=== PATIENT | female | born 1935 | race Asian ===

== ENCOUNTER 2017-01-23 13:12 | Inpatient (IN) | payer MEDICARE ==
[~2017-01-23] VITALS: Ht 157.5 cm; Wt 50.7 kg
[2017-01-23] MEDS ORDERED: SODIUM CHLORIDE 0.9% 1,000 ML IV ONE (13:31)
[2017-01-23] MEDS ORDERED: ACETAMINOPHEN 650 MG SUPP ONE (13:39)
[2017-01-23] MEDS: PLEASE ENTER ALLERGIES MC SCH ×4 (13:58→14:10)
[2017-01-23] MEDS ORDERED: ACETAMINOPHEN 650 MG SUPP PR ONE (14:00)
[2017-01-23] MEDS ORDERED: SODIUM CHLORIDE FLUSH 10ML SYR IVF ONE (14:00)
[2017-01-23] MEDS ORDERED: SODIUM CHLORIDE 0.9% 1,000ML IVBOLUS ONE ×2 (14:00→16:00)
[2017-01-23 14:09] LABS: ABG COLLECTION SITE RIGHT BRACHIAL
[2017-01-23] MEDS ORDERED: CEFTRIAXONE PMX 1GM/50ML 50 ML ONE (14:11)
[2017-01-23] MEDS ORDERED: ENAL25PO PO (14:17)
[2017-01-23] MEDS ORDERED: AMLO2.5T PO (14:17)
[2017-01-23] MEDS ORDERED: METO5AMP2 PO (14:18)
[2017-01-23 14:21] LABS: ASPARTATE AMINO TRANSFERASE 16 U/L (15-37); BLOOD UREA NITROGEN 18 mg/dL (7-18)
[2017-01-23] MEDS ORDERED: AZITHROMYCIN 500 MG in SODIUM CHLORIDE 0.9% 250 ML IV ONE (14:30)
[2017-01-23] MEDS ORDERED: CEFTRIAXONE PMX 1GM/50ML 50 ML IV ONE (14:30)
[2017-01-23 14:32] LABS: ACETAMINOPHEN < 2 mcg/mL (10-30)
[2017-01-23 14:33] LABS: IS PT STATUS REG ER OR PRE ER? YES
[2017-01-23 14:41] LABS: PATH.CAST-FLAG NOT PRESENT; SPERM-FLAG NOT PRESENT; SRC-FLAG NOT PRESENT; XTAL-FLAG NOT PRESENT; YLC-FLAG NOT PRESENT
[2017-01-23 14:44] LABS: DIFF TOTAL CELLS COUNTED 100 CELL DIFF
[2017-01-23 14:46] LABS: VERIFY COUNTS? YES
[2017-01-23] MEDS ORDERED: ASPIRIN 300 MG SUPP PR ONE (15:30)
[2017-01-23 16:27] LABS: DAU SCREEN DISCLAIMER
[2017-01-23] MEDS ORDERED: LABETALOL 5MG/ML, 20ML IVPush PRN (16:30)
[2017-01-23] MEDS ORDERED: BISACODYL 10 MG SUPP PR PRN (16:30)
[2017-01-23] MEDS ORDERED: ONDANSETRON 2MG/ML, 2ML IVPush PRN (16:30)
[2017-01-23] MEDS ORDERED: POLYETHYLENE GLYCOL 17 GM PACKET PO PRN (16:30)
[2017-01-23] MEDS ORDERED: ONDANSETRON ODT 4 MG PO PRN (16:30)
[2017-01-23] MEDS ORDERED: ACETAMINOPHEN 325 MG TABLET PO PRN (16:30)
[2017-01-23] MEDS ORDERED: SODIUM CHLORIDE 0.9% 1,000 ML IV SCH (16:30)
[2017-01-23] MEDS ORDERED: DOCUSATE 100 MG CAPSULE PO PRN (16:30)
[2017-01-23 17:21] VITALS: BP 146/81
[2017-01-23] MEDS: ERYTHROMYCIN OPHTH 0.5%, 1GM EACHEYE SCH ×2 (17:59→21:29)
[2017-01-23] MEDS ORDERED: MAGNESIUM SULFATE PMX 2GM/50ML 50 ML IV ONE (18:00)
[2017-01-23] MEDS ORDERED: POTASSIUM CHLORIDE 40 MEQ in SODIUM CHLORIDE 0.9% 500 ML IV ONE (18:00)
[2017-01-23 18:17] VITALS: BP 129/78
[2017-01-23 20:53] LABS: IS PT STATUS REG ER OR PRE ER? NO
[2017-01-23] MEDS: HEPARIN 5,000 UNITS/ML, 1ML SQ SCH (21:30)
[2017-01-24] MEDS ORDERED: ALBUTEROL SULFATE 2.5 MG/3 ML NPPB PRN
[2017-01-24 02:20] LABS: ASPARTATE AMINO TRANSFERASE 23 U/L (15-37); BLOOD UREA NITROGEN 11 mg/dL (7-18)
[2017-01-24 02:25] LABS: IS PT STATUS REG ER OR PRE ER? NO
[2017-01-24 02:37] VITALS: BP 123/75
[2017-01-24] MEDS: DOXYCYCLINE 100 MG in DEXTROSE 5% 250 ML IV SCH ×2 (03:05→15:18)
[2017-01-24] MEDS: ERYTHROMYCIN OPHTH 0.5%, 1GM EACHEYE SCH ×4 (06:31→21:35)
[2017-01-24] MEDS: HEPARIN 5,000 UNITS/ML, 1ML SQ SCH ×3 (06:31→21:35)
[2017-01-24 07:08] VITALS: BP 146/83
[2017-01-24 09:08] LABS: IS PT STATUS REG ER OR PRE ER? NO
[2017-01-24] MEDS ORDERED: POTASSIUM PHOSPHATE 22 MEQ in SODIUM CHLORIDE 0.9% 500 ML IV ONE (09:30)
[2017-01-24] MEDS: CEFTRIAXONE PMX 1GM/50ML 50 ML IV SCH (14:40)
[2017-01-24 15:02] LABS: IS PT STATUS REG ER OR PRE ER? NO
[2017-01-24 15:04] VITALS: BP 138/83
[2017-01-24 20:00] VITALS: BP 115/74
[2017-01-24 20:57] LABS: IS PT STATUS REG ER OR PRE ER? NO
[2017-01-25 00:55] VITALS: BP 128/73
[2017-01-25] MEDS: DOXYCYCLINE 100 MG in DEXTROSE 5% 250 ML IV SCH ×2 (01:30→14:51)
[2017-01-25] MEDS: SODIUM CHLORIDE 0.9% 1,000 ML IV SCH ×2 (02:03→21:36)
[2017-01-25 05:44] LABS: BLOOD UREA NITROGEN 12 mg/dL (7-18)
[2017-01-25] MEDS: HEPARIN 5,000 UNITS/ML, 1ML SQ SCH ×3 (06:01→21:35)
[2017-01-25] MEDS: ERYTHROMYCIN OPHTH 0.5%, 1GM EACHEYE SCH ×4 (06:02→21:36)
[2017-01-25 07:11] VITALS: BP 130/80
[2017-01-25 10:09] LABS: IS PT STATUS REG ER OR PRE ER? NO
[2017-01-25] MEDS ORDERED: METO25TA35 PO (13:06)
[2017-01-25] MEDS ORDERED: AMLO10TA2 PO (13:29)
[2017-01-25] MEDS ORDERED: ENAL20TA PO (13:30)
[2017-01-25] MEDS: CEFTRIAXONE PMX 1GM/50ML 50 ML IV SCH (13:35)
[2017-01-25 14:10] VITALS: BP 105/69
[2017-01-25 20:19] VITALS: BP 113/70
[2017-01-26 01:56] VITALS: BP 114/71
[2017-01-26] MEDS: DOXYCYCLINE 100 MG in DEXTROSE 5% 250 ML IV SCH ×2 (02:23→14:04)
[2017-01-26] MEDS: HEPARIN 5,000 UNITS/ML, 1ML SQ SCH ×3 (05:24→21:50)
[2017-01-26] MEDS: ERYTHROMYCIN OPHTH 0.5%, 1GM EACHEYE SCH ×4 (05:24→21:50)
[2017-01-26 06:35] LABS: BLOOD UREA NITROGEN 11 mg/dL (7-18)
[2017-01-26 06:45] VITALS: BP 147/78
[2017-01-26] MEDS: METOPROLOL TARTRATE 25 MG TABLET PO SCH ×2 (09:15→21:50)
[2017-01-26 12:40] VITALS: BP 136/83
[2017-01-26] MEDS: CEFTRIAXONE PMX 1GM/50ML 50 ML IV SCH (14:04)
[2017-01-26 19:01] VITALS: BP 130/73
[2017-01-26] MEDS: ENALAPRIL 20MG TABLET PO SCH (21:50)
[2017-01-27] MEDS: DOXYCYCLINE 100 MG in DEXTROSE 5% 250 ML IV SCH (02:20)
[2017-01-27 02:21] VITALS: BP 116/68
[2017-01-27] MEDS: HEPARIN 5,000 UNITS/ML, 1ML SQ SCH (06:02)
[2017-01-27] MEDS: ERYTHROMYCIN OPHTH 0.5%, 1GM EACHEYE SCH ×4 (06:02→21:00)
[2017-01-27 07:08] VITALS: BP 122/72
[2017-01-27] MEDS: METOPROLOL TARTRATE 25 MG TABLET PO SCH ×2 (09:32→21:00)
[2017-01-27] MEDS: ENALAPRIL 20MG TABLET PO SCH ×2 (09:33→21:00)
[2017-01-27] MEDS ORDERED: FUROSEMIDE 20 MG/2 ML IV ONE (11:00)
[2017-01-27] MEDS: METRONIDAZOLE PMX 500MG/100ML 100 ML IV SCH ×2 (13:45→21:07)
[2017-01-27] MEDS: ENOXAPARIN 40 MG/0.4 ML SQ SCH (13:45)
[2017-01-27 14:04] VITALS: BP 120/66
[2017-01-27] MEDS: CEFTRIAXONE PMX 1GM/50ML 50 ML IV SCH (14:58)
[2017-01-27] MEDS: LACTOBACILLUS CHEW TABLET PO SCH ×2 (16:00→21:00)
[2017-01-27 19:37] VITALS: BP 113/67
[2017-01-27 21:30] LABS: OCCBLD OBC PASS
[2017-01-28] VITALS: BP 104/71
[2017-01-28 04:48] LABS: BLOOD UREA NITROGEN 14 mg/dL (7-18)
[2017-01-28] MEDS: ERYTHROMYCIN OPHTH 0.5%, 1GM EACHEYE SCH ×4 (04:54→20:13)
[2017-01-28] MEDS: METRONIDAZOLE PMX 500MG/100ML 100 ML IV SCH ×3 (04:54→20:11)
[2017-01-28 07:25] VITALS: BP 111/65
[2017-01-28] MEDS: POTASSIUM CHLORIDE 20 MEQ TAB.ER.PRT PO SCH (08:00)
[2017-01-28] MEDS: FUROSEMIDE 20 MG/2 ML IV SCH (08:24)
[2017-01-28] MEDS: METOPROLOL TARTRATE 25 MG TABLET PO SCH ×2 (08:27→20:44)
[2017-01-28] MEDS: ENALAPRIL 20MG TABLET PO SCH ×2 (08:27→20:44)
[2017-01-28] MEDS: LACTOBACILLUS CHEW TABLET PO SCH ×3 (08:28→20:44)
[2017-01-28] MEDS: ENOXAPARIN 40 MG/0.4 ML SQ SCH (11:00)
[2017-01-28 13:55] VITALS: BP 109/78
[2017-01-28] MEDS: CEFTRIAXONE PMX 1GM/50ML 50 ML IV SCH (15:34)
[2017-01-28] MEDS: PANTOPRAZOLE 40 MG IV IVPush SCH (15:41)
[2017-01-28 19:04] VITALS: BP 129/72
[2017-01-29 01:27] VITALS: BP 132/73
[2017-01-29] MEDS: PANTOPRAZOLE 40 MG IV IVPush SCH ×2 (02:34→16:05)
[2017-01-29] MEDS: METRONIDAZOLE PMX 500MG/100ML 100 ML IV SCH ×3 (04:08→20:43)
[2017-01-29] MEDS: ERYTHROMYCIN OPHTH 0.5%, 1GM EACHEYE SCH ×5 (05:45→21:12)
[2017-01-29 06:06] LABS: BLOOD UREA NITROGEN 14 mg/dL (7-18)
[2017-01-29 07:46] VITALS: BP 122/68
[2017-01-29] MEDS: METOPROLOL TARTRATE 25 MG TABLET PO SCH ×2 (09:40→21:12)
[2017-01-29] MEDS: FUROSEMIDE 20 MG/2 ML IV SCH (09:41)
[2017-01-29] MEDS: ENALAPRIL 20MG TABLET PO SCH ×2 (09:41→21:12)
[2017-01-29] MEDS: POTASSIUM CHLORIDE 20 MEQ TAB.ER.PRT PO SCH (09:41)
[2017-01-29] MEDS: LACTOBACILLUS CHEW TABLET PO SCH ×3 (09:42→21:12)
[2017-01-29] MEDS ORDERED: POTASSIUM CHLORIDE 40 MEQ in SODIUM CHLORIDE 0.9% 500 ML IV ONE (10:30)
[2017-01-29] MEDS: CEFTRIAXONE PMX 1GM/50ML 50 ML IV SCH (13:53)
[2017-01-29 14:30] VITALS: BP 125/72
[2017-01-29 19:27] VITALS: BP 138/60
[2017-01-29] MEDS ORDERED: LABETALOL 5MG/ML, 20ML IVPush PRN (19:30)
[2017-01-29] MEDS ORDERED: ONDANSETRON 2MG/ML, 2ML IVPush PRN (19:30)
[2017-01-29] MEDS ORDERED: BISACODYL 10 MG SUPP PR PRN (19:30)
[2017-01-30 04:05] VITALS: BP 138/78
[2017-01-30] MEDS: PANTOPRAZOLE 40 MG IV IVPush SCH (04:22)
[2017-01-30] MEDS: METRONIDAZOLE PMX 500MG/100ML 100 ML IV SCH (04:22)
[2017-01-30] MEDS: ERYTHROMYCIN OPHTH 0.5%, 1GM EACHEYE SCH ×2 (06:00→11:00)
[2017-01-30 06:36] VITALS: BP 147/76
[2017-01-30] MEDS: FUROSEMIDE 20 MG/2 ML IV SCH (07:44)
[2017-01-30] MEDS: LACTOBACILLUS CHEW TABLET PO SCH (07:44)
[2017-01-30] MEDS: POTASSIUM CHLORIDE 20 MEQ TAB.ER.PRT PO SCH (07:44)
[2017-01-30] MEDS: ENALAPRIL 20MG TABLET PO SCH (07:45)
[2017-01-30] MEDS: METOPROLOL TARTRATE 25 MG TABLET PO SCH (07:45)
[2017-01-30] MEDS ORDERED: METO-93 PO (10:42)
[2017-01-30] MEDS ORDERED: FURO20TA3 PO (10:42)
[2017-01-30] MEDS ORDERED: POTA10TA5 PO (10:42)
[2017-01-30 14:07] VITALS: BP 153/90
[2017-01-31] MEDS ORDERED: POTASSIUM CHLORIDE 20 MEQ TAB.ER.PRT PO ONE (08:00)
[2017-01-31] MEDS ORDERED: FUROSEMIDE 20 MG TABLET PO SCH (09:00)
== END 2017-01-30 14:30 | disposition home or self-care (01) | DRG 871 ==
LOC: ED 15:12 → EDIP 15:13 → ED 15:34 → 4WST 16:55
PROVIDERS: ADMIT Hospitalist; ATTEND Internal Medicine
PROC: 0T9B70Z Drainage of Bladder with Drainage Device, Via Natural or Artificial Opening (ICD-10-PCS; principal; 2017-01-23)
DX: A41.9 Sepsis, unspecified organism (principal); J69.0 Pneumonitis due to inhalation of food and vomit; E43 Unspecified severe protein-calorie malnutrition; N17.0 Acute kidney failure with tubular necrosis; G93.41 Metabolic encephalopathy; I50.23 Acute on chronic systolic (congestive) heart failure; E87.2 Acidosis; E87.6 Hypokalemia; I10 Essential (primary) hypertension; R09.02 Hypoxemia; N30.90 Cystitis, unspecified without hematuria; B96.20 Unspecified Escherichia coli [E. coli] as the cause of diseases classified elsewhere; E83.39 Other disorders of phosphorus metabolism; E83.42 Hypomagnesemia; E86.1 Hypovolemia; R73.9 Hyperglycemia, unspecified; H01.009 Unspecified blepharitis unspecified eye, unspecified eyelid; I11.0 Hypertensive heart disease with heart failure; N30.91 Cystitis, unspecified with hematuria; Z66 Do not resuscitate; Z95.0 Presence of cardiac pacemaker; Z68.20 Body mass index [BMI] 20.0-20.9, adult
CPT/HCPCS: 36415; 36600; 70450; 71010; 74000; 80048; 80053; 80307; 80329; 81001; 81003; 82040; 82140; 82272; 82607; 82803; 83036; 83605; 83735; 84100; 84145; 84439; 84443; 84484; 85014; 85018; 85025; 85610; 87040; 87077; 87086; 87186; 87324; 89055; 93005; 93306; 96365; J0456; J0696; J1644; J1650; J3480; J7060; C9113; G0480; J1940; J3475; J7030; J7040; J7050